=== PATIENT | male | born 1965 | race Caucasian/White ===

== ENCOUNTER 2019-09-10 09:50 | Emergency (ER) | payer OTHER, SELFPAY ==
--- NOTE | ~2019-09-10 | XR_ITS ---
EXAMINATION: XR chest 2V EXAM DATE: 09/10/2019 10:38 INDICATION: Cough for 6 days. TECHNIQUE: Frontal and lateral projections of the chest obtained and reviewed. Comparison is made to prior examination from 11/24/2018. FINDINGS: The lungs are clear. There are no pleural effusions. The cardiomediastinal silhouette is within normal limits. There is no pneumothorax suspected. The bones and soft tissues are unremarkab le. IMPRESSION: Unremarkable chest x-ray exam. Reviewed, dictated and finalized at location [facility]
[2019-09-10 09:57] VITALS: BP 153/107; PULSE 90; RESP 20; TEMP 36.8; O2SAT 100
--- NOTE | 2019-09-10 10:23 | ED.URI ---
HPI - URI/Sore Throat General Chief Complaint: Upper Respiratory Infection Stated Complaint: WEAKNESS/LIGHT HEADED Time Seen by Provider: 09/10/19 10:11 Source: patient and RN notes reviewed Mode of arrival: ambulatory Limitations: no limitations History of Present Illness HPI Narrative: Patient presents today with a 6-day history of cough, congestion, fatigue. Reports possible subjective fever there for the first 2 days of illness, but this has resolved. He mainly presents today complaining of severe fatigue. Denies shortness of breath or sore throat. He has been taking Mucinex with some relief. Reports that in November 2018, he coughed so hard he caused a rectus sheath hematoma and had to have blood transfusions and was hospitalized for approximately 1 week. Patient is also been out of his hypertension medication for the past couple of days, but is unsure of the name. MD elicited complaint: cough and other (Fatigue) Related Data Home Medications Medication Instructions Recorded Confirmed B/P Med 09/10/19 guaifenesin [Mucinex] 1,200 mg PO BID 09/10/19 09/10/19 Allergies Allergy/AdvReac Type Severity Reaction Status Date / Time No Known Allergies Allergy Verified 09/10/19 10:07 Review of Systems Review of Systems: Narrative: CONSTITUTIONAL: Denies body aches, fever, chills, or sweats.+ Fatigue EYES: Denies visual changes, redness, or discharge. ENT: Denies rhinorrhea, sore throat, or otalgia.+ Nasal congestion CARDIOVASCULAR: Denies chest pain, palpitations, or edema. RESPIRATORY: Denies dyspnea.+ Cough GASTROINTESTINAL: Denies abdominal pain, nausea, vomiting, or diarrhea. GENITOURINARY: Denies dysuria or hematuria. SKIN: Denies rash, itching, or wounds. MUSCULOSKELETAL: Denies back pain, joint pain, or myalgia. NEUROLOGIC: Denies headache, numbness, tingling, or weakness. PSYCH: Denies depression or anxiety. [facility] Past Medical History Medical History (Updated 09/10/19 @ 10:50 by Shabana Adkins, GAIL, BC) Hypertension Rectus sheath hematoma Social History Social History (Updated 09/10/19 @ 10:25 by Shabana Adkins, GAIL, BC) Smoking status: Current every day smoker Tobacco type: cigarettes Comments At time of signature, I have reviewed and agree with nursing past medical, surgical, social and family history unless otherwise noted. Please see nursing chart for further information. There is no relevant family history pertinent to the presenting complaint Exam Narrative: Exam Narrative: GENERAL: Mildly ill-appearing, well-nourished, and in no acute distress. HEAD: Normocephalic, atraumatic. EYES: EOMI. No redness or drainage. Conjunctivae normal. ENT: Mucous membranes pink and moist. Nares clear. No rhinorrhea. TMs normal bilaterally. Throat normal. Uvula midline. NECK: Normal AROM. Supple. No lymphadenopathy. CHEST: No respiratory distress. Crackles to the right lower lobe, otherwise clear. HEART: Regular rate and rhythm. No murmur appreciated. Normal peripheral pulses. EXTREMITIES: Normal range of motion. No edema. SKIN: Warm, dry, no rash. NEURO: No focal deficits. Alert and oriented x3. Gait steady. PSYCH: Normal affect. No signs of depression or anxiety. Course Vital Signs Vital signs: Vital Signs Temperature 98.2 F 09/10/19 09:57 Pulse Rate 90 09/10/19 09:57 Respiratory Rate 09/10/19 09:57 Blood Pressure 153/107 H 09/10/19 09:57 Pulse Oximetry 100 09/10/19 09:57 Temperature 98.2 F 09/10/19 09:57 Pulse Rate 90 09/10/19 09:57 Respiratory Rate 09/10/19 09:57 Blood Pressure 153/107 H 09/10/19 09:57 Pulse Oximetry 100 09/10/19 09:57 Reviewed. Pt has been instructed to follow up with his PCP regarding his elevated blood pressure today. MDM - URI/Sore Throat Differential Diagnosis Differential diagnosis: Likely upper respiratory infection, sinusitis, viral infection, bronchitis and other (Pneumonia) Imaging Data Radiologist's impres
== END 2019-09-10 11:00 | disposition home or self-care (01) ==
PROVIDERS: Emergency Provider Nurse Practitioner
DX: J40 Bronchitis, not specified as acute or chronic (principal); J06.9 Acute upper respiratory infection, unspecified; I10 Essential (primary) hypertension; F17.210 Nicotine dependence, cigarettes, uncomplicated
CPT/HCPCS: 71046; 99213; G0463